=== PATIENT | female | born 2000 | race Caucasian/White ===

== ENCOUNTER 2019-08-02 19:37 | Emergency (ER) | payer BC, SELFPAY ==
[2019-08-02 19:38] VITALS: BP 144/90; PULSE 109; RESP 18; TEMP 37.2; O2SAT 98; BMI 23.5
[2019-08-02] MEDS: Ketorolac 30 MG/ML Syringe IV (20:07)
[2019-08-02] MEDS: 0.9% Normal Saline 1,000 ML 1000 ML IV (20:07)
--- NOTE | 2019-08-02 20:12 | RAD_ITS ---
STUDY: X-RAY CHEST REASON FOR EXAM: Female, 18 years old. Cough TECHNIQUE: Frontal and lateral views COMPARISON: None. FINDINGS: The lungs are clear and expanded. There is no demonstrated pleural abnormality. Normal size heart. Normal mediastinum and jeremiah. Normal visualized pulmonary arteries. Normal visualized aortic arch and descending thoracic aorta. Normal visualized thoracic spine. Normal visualized ribs, clavicles, and shoulders. There is no demonstrated abnormality of the visualized soft tissue structures of the upper abdomen. RAD/Chest PA and Lateral IMPRESSION: Normal x-ray examination of the chest. Electronically Signed: Bobby Thomas DO at 20:32 EST Tel [phone], Service support ,
[2019-08-02 20:25] LABS: Absolute Lymphocyte Count 2.08 X10^3/uL (0.83-4.51); Absolute Neutrophil Count 10.4 X10^3/uL (2.0-7.7); Basophil# 0.06 X10^3/uL; Basophil% 0.5 % (0-1); Eosinophil# 0.02 X10^3/uL; Eosinophils% 0.2 % (0-5); Hematocrit 43.3 % (37-47); Lymphocyte # 2.08 X10^3/ul (4.0); Lymphocyte % 15.8 % (19-41); Mean Corp Hgb Conc 32.3 g/dL (32-36); Mean Corpuscular Hgb 27.6 pg (27.0-32.0); Mean Corpuscular Volume 85.4 fL (81-99); Monocyte# 0.53 X10^3/uL; NRBC Flagged by Analyzer 0 % (0-5); Neutrophil # 10.41 X10^3/uL (2.7-7.7); Neutrophil % 79.1 % (47-70); Platelet Count 475 K/mm3 (150-450); RBC Distribution Width CV 13.3 % (11.6-14.6); RBC Distribution Width SD 41.6 fl (35.1-43.9); Red Blood Count 5.07 M/mm3 (4.2-5.4); White Blood Count 13.2 K/mm3 (4.4-11.0)
[2019-08-02 20:31] LABS: Internal QC Validated? YES +Cl - CLEAR BKGD; Pregnancy, Serum, hCG Quali. NEGATIVE Negative
[2019-08-02 20:33] LABS: Internal QC Validated? YES +Cl - CLEAR BKGD; Monotest Negative (Negative)
[2019-08-02 20:34] LABS: Anion Gap 6 (5-15); BUN 16 mg/dL (7-18); BUN/Creat Ratio 16.2 RATIO (10-20); Calcium,Total 9.6 mg/dL (8.5-10.1); Chloride 107 mmol/L (98-107); Creatinine, Serum 0.99 mg/dL (0.55-1.02); EST Glomerular Filtration Rate 75 mL/min (>60); Est Glom Filt Rate - Afr Amer 91 mL/min (>60); Estimated Creatinine Clearance 81.57 ml/min; Glucose 90 mg/dL (74-106); Potassium 4.3 mmol/L (3.5-5.1); Sodium Level 137 mmol/L (136-145)
[2019-08-02 21:02] LABS: Bacteria 0 SEEN /hpf (None Seen); Mucous, Urine 0 SEEN /hpf (<or=2+); White Blood Cells 0 SEEN /hpf (0-5)
[2019-08-02 21:05] LABS: Color, Urine Yellow (Yellow); Glucose, Dipstick Normal (Normal); Ketone-Dipstick Negative (Negative); Leukocyte Esterase-Dipstick Negative /ul (Negative); Nitrite-Dipstick Negative (Negative); Occult Blood-Urine 10 /ul (Negative); Protein-Dipstick Negative (Negative); Specific Gravity, Urine 1.015 (1.002-1.030); Urine Bilirubin Dipstick Negative (Negative); Urine Clarity Sl. Cloudy (Clear); Urine Urobilinogen Normal (Normal)
[2019-08-02 21:13] LABS: Red Blood Cells-Urine 0-5 SEEN /hpf (0-5); Squamous Epithelial Cells - UA 0-5 SEEN /hpf (5-10)
--- NOTE | 2019-08-02 21:33 | ED.DCSUM_ITS ---
- ER Visit Summary Date of Service: 08/02/19 Chief Complaint: [] History of Present Illness: The patient is a 18 F [cough and congestion and body aches presents to the emergency meant with symptoms that she has had for about 18 days. Patient states initially she had episodes of cough and vomiting and was seen at an urgent care 2 weeks ago and thought she might have the flu. She initially got better. Patient then started to feel worse again and she still can planing of cough that is essentially nonproductive. Today she had one loose stool. She is had no further vomiting. Patient states that she is just been feeling fatigued and no energy. She denies urinary symptoms. When symptoms were started she also had a sore throat but that has since resolved. Any abdominal pain. Patient has not had any fevers.] Physical Examination: [HEVALDEMAR-PERRLA, TAYLERMI. Cranial nerves II through XII grossly intact. TMs clear. Mucous membranes moist. No adenopathy. Pharynx nonerythematous. Uvula midline. No trismus. Cardiovascular-regular rate and rhythm without murmur or ectopy Lungs-clear to auscultation, chest wall stable without crepitus or subcu emphysema Abdomen-normoactive bowel sounds, soft, nontender, no rebound or rigidity, no peritoneal signs. Extremities-intact ?4, normal range of motion, normal pulses, atraumatic] Test Results: [CBC with differential obtained showed a slightly elevated white blood cell count of 13.2, hemoglobin 14, hematocrit 43, platelets were 75. Chemistries unremarkable. Urinalysis unremarkable. Monospot was negative. hCG was negative.] Chest x-ray showed nothing acute. Emergency Department Course and Treatment: [Patient had a IV line established and was given a liter normal same fluid bolus.] Treatment Plan: [Patient advised to follow-up with primary care physician in 5 to 7 days] Disposition: [Discharged to home in stable condition.] Impression: [Viral URI] This note was generated with [employer] dictation software. It may contain incorrect words, spelling, and punctuation that were not noted in review of the chart prior to signing ED Disposition - Plan for ED Patient: Referrals: NOT,DEFINED [Primary Care Provider] -
--- NOTE | 2019-08-02 21:36 | ED.DEP ---
ED Disposition - Plan for ED Patient: Instructions: URI, Viral, No Abx (Adult) Prescriptions: Benzonatate [Tessalon Perle] 200 mg PO TID PRN PRN #20 cap PRN Reason: Cough Prescription Printed Referrals: NOT,DEFINED [Primary Care Provider] - 5-7 Days
[2019-08-02 21:40] VITALS: RESP 18; O2SAT 99
== END 2019-08-02 21:45 | disposition home or self-care (01) ==
LOC: ED 20:00
PROVIDERS: Emergency Provider Emergency Medicine
DX: J06.9 Acute upper respiratory infection, unspecified (principal); R19.7 Diarrhea, unspecified; J45.909 Unspecified asthma, uncomplicated
CPT/HCPCS: 71046; 80048; 81001; 84703; 85025; 86308; 96361; 96374; 99282; J7030